=== PATIENT | male | born 1945 | race Caucasian/White ===

== ENCOUNTER 2017-08-11 14:19 | Outpatient (CLI) | payer MEDICARE ==
--- NOTE | 2017-08-11 16:01 | CT ---
CT OF THE CHEST WITHOUT CONTRAST: COMPARISON: None. History Atherosclerotic disease of the coronary arteries. Previous heart surgery. TECHNIQUE: Multiple contiguous axial images were obtained in a CT of the chest without contrast. Coronal reform ats were performed. FINDINGS: The heart is enlarged. There are calcifications in the aorta and coronary arteries. The patient is status post aortic valve replacement. No obvious hilar or mediastinal lymphadenopathy are seen, but evaluation is limited without IV contrast. There is a calcified right hilar lymph node. Atelectasis is seen in the left lung. No pneumothorax or pleural effusion are seen. Interval develo pment of a 1.8 cm soft tissue density in the right middle lobe may represent an area of round atelect asis. No other pulmonary nodules are seen. Degenerative changes are seen in the spine. There are cysts in both kidneys. Other visualized subdi aphragmatic structures are unremarkable. The chest wall soft tissues are unremarkable. IMPRESSION: 1. Interval development of wedge-shaped area of soft tissue density in the anterior right middle lob e. This may represent round atelectasis. 2. Left lung atelectasis. 3. Bilateral renal cysts. POS: [facility]
== END 2017-08-11 14:20 | disposition home or self-care (01) ==
LOC: CT 14:19
PROVIDERS: ATTEND Thoracic Surgery (Cardiothoracic Vascular Surgery)
DX: I25.10 Atherosclerotic heart disease of native coronary artery without angina pectoris (principal); J98.11 Atelectasis; R91.8 Other nonspecific abnormal finding of lung field; Q61.02 Congenital multiple renal cysts
CPT/HCPCS: 71250

== ENCOUNTER 2018-09-18 09:22 | Outpatient (CLI) | payer MEDICARE ==
--- NOTE | 2018-09-18 11:06 | CT ---
NONCONTRAST CT THORAX: Date: 09-18-18 History: Follow up thoracic aortic aneurysm. Comparison: 08-11-17 FINDINGS: The heart remains mildly enlarged. 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 There are dense vascular calcifications again present in the coronary arteries. Post-surgical change related to median sternotomy and aortic valve replacement are again seen. The ascending thoracic aorta remains dilated and enlarged measuring 5.2 cm in greatest transverse dim ension. The descending thoracic aorta is normal in caliber. Lack of intravenous contrast limits sensitivity for evaluation of the mediastinal structures, but no definite enlarged lymph nodes are seen. Calcified right hilar lymph nodes are seen. There is linear atelectasis versus scarring again present at each lung base. There are a few reticular nodular densities seen within the right upper lobe adjacent to the superior aspect of the major fissure which may be related to infectious or inflammatory process. This was not seen on the prior exam. No additional pulmonary nodule or mass is seen. There is no pleural effusion identified. There is incomplete visualization of a hypodense superior pole left renal lesion, also seen on the pr ior exam as well as on CTA exam in 2015, likely representing a renal cyst. There is a subcentimeter t oo small to characterize hypodense lesion also seen in the medial aspect of the superior pole left ki dney. Degenerative changes are seen in the spine with wedge shaped compressed fracture again seen involving the T12 vertebral body. IMPRESSION: 1. Nodular and reticulonodular densities seen within the right upper lobe adjacent to the major fissu re. These were not seen on the prior exam and findings may be related to infectious or inflammatory p rocess. However, follow up evaluation is recommended. 2. Stable aneurysmal dilatation of the ascending thoracic aorta measuring 5.2 cm in diameter. 3. Vascular calcifications in the coronary arteries and in the thoracic aorta. 4. Post-surgical changes related to aortic valve replacement. 5. Mild cardiomegaly. POS: [facility]
== END 2018-09-18 09:23 | disposition home or self-care (01) ==
LOC: BICCT 09:22
PROVIDERS: ATTEND Thoracic Surgery (Cardiothoracic Vascular Surgery)
DX: I71.2 Thoracic aortic aneurysm, without rupture (principal); I70.0 Atherosclerosis of aorta; I25.10 Atherosclerotic heart disease of native coronary artery without angina pectoris; J98.4 Other disorders of lung; I51.7 Cardiomegaly; Z98.890 Other specified postprocedural states
CPT/HCPCS: 71250

== ENCOUNTER 2019-11-01 14:48 | Outpatient (CLI) | payer MEDICARE ==
--- NOTE | 2019-11-01 16:25 | CT ---
CT chest noncontrast HISTORY: Thoracic aortic aneurysm. Follow-up. COMPARISON: 09/18/2018. FINDINGS: Measured at the same location on the ascending thoracic aorta, the aorta is 5.2 cm AP by 5. 2 cm transverse diameters. The upper thoracic aorta is 2.9 cm greatest diameter. Lower thoracic aorta is 3.1 cm oblique diameter . There is calcification in the arterial structures including coronary arteries Lungs remain hyperinflated with scattered areas of parenchymal scarring and mild emphysematous change . Calcified granulomata are consistent with healed granulomatous disease. Severe compression of the lower thoracic vertebral body on the sagittal reformatted images is stable.. Postoperative changes th e mediastinum are evident. Inferior most images partially show a cystic lesion of the left kidney. IMPRESSION: Stable CT appearance of the ascending thoracic aortic aneurysm. Emphysematous changes of the lungs. Atherosclerosis. Chronic-type findings are stable.
== END 2019-11-01 14:49 | disposition home or self-care (01) ==
LOC: BICCT 14:48
PROVIDERS: ATTEND Thoracic Surgery (Cardiothoracic Vascular Surgery)
DX: I71.2 Thoracic aortic aneurysm, without rupture (principal); J43.9 Emphysema, unspecified; I25.10 Atherosclerotic heart disease of native coronary artery without angina pectoris
CPT/HCPCS: 71250

== ENCOUNTER 2021-05-14 08:53 | Outpatient (CLI) | payer MEDICARE | END 2021-05-14 08:54 | disposition home or self-care (01) | LOC: CT 08:53 | PROVIDERS: ATTEND Thoracic Surgery (Cardiothoracic Vascular Surgery) | DX: Z86.79 Personal history of other diseases of the circulatory system (principal); I77.810 Thoracic aortic ectasia; N28.1 Cyst of kidney, acquired | CPT/HCPCS: 71275; 74174; 82565 ==

== ENCOUNTER 2022-05-10 08:08 | Outpatient (CLI) | payer MEDICARE ==
[2022-05-10] MEDS ORDERED: Iopamidol 370 76% 100 ML VIAL ONE (10:08)
== END 2022-05-10 08:09 | disposition home or self-care (01) ==
LOC: CT 08:08
PROVIDERS: ATTEND Thoracic Surgery (Cardiothoracic Vascular Surgery)
DX: I35.1 Nonrheumatic aortic (valve) insufficiency (principal); I51.7 Cardiomegaly; I77.810 Thoracic aortic ectasia; I70.8 Atherosclerosis of other arteries
CPT/HCPCS: 71275; 82565; Q9967

== ENCOUNTER 2024-07-02 13:30 | Outpatient (CLI) | payer MEDICARE ==
[2024-07-02] MEDS ORDERED: Iopamidol 370 76% 100 ML VIAL ONE (14:22)
== END 2024-07-02 13:31 | disposition home or self-care (01) ==
LOC: BICCT 13:30
PROVIDERS: ATTEND Thoracic Surgery (Cardiothoracic Vascular Surgery)
DX: I71.21 Aneurysm of the ascending aorta, without rupture (principal); I51.7 Cardiomegaly; I25.10 Atherosclerotic heart disease of native coronary artery without angina pectoris; I77.1 Stricture of artery; J90 Pleural effusion, not elsewhere classified; Z95.4 Presence of other heart-valve replacement
CPT/HCPCS: 36415; 71275; 82565; Q9967